=== PATIENT | male | born 1995 | race Caucasian/White ===

== ENCOUNTER 2023-05-01 21:03 | Emergency (ER) | payer SELFPAY ==
[2023-05-01] MEDS ORDERED: Acetaminophen/HYDROcodone 325-10 MG Tab PO ONE (22:16)
== END 2023-05-01 22:37 | disposition home or self-care (01) ==
LOC: JD.ED 21:03
DX: S69.92XA Unspecified injury of left wrist, hand and finger(s), initial encounter (principal); Z88.8 Allergy status to other drugs, medicaments and biological substances; W20.8XXA Other cause of strike by thrown, projected or falling object, initial encounter
CPT/HCPCS: 73140; 99283; A9270